=== PATIENT | female | born 1965 | race Caucasian/White ===

== ENCOUNTER 2016-10-02 09:04 | Day surgery (SDC) | payer BC ==
[2016-10-02 09:58] VITALS: BMI 23.0
[2016-10-02 10:55] VITALS: TEMP 97.5
[2016-10-02 11:47] VITALS: BP 108/64; PULSE 58
--- NOTE | 2016-10-03 13:29 | PATH ---
Surgical Pathology Report Patient Name: GILBERTO BROWN [facility]. Rec. #: [id number] /Age/Gender: 1965 (Age: 51) / F Account: [id number] Location: [facility]-ENDOSCOPY Taken: 10/02/2016 Received: 10/02/2016 Reported: 10/03/2016 Physicians: Urban Paredes D.O. Specimen(s) Received A: BX DUODENUM B: BX BODY Clinical History Nausea and vomiting Final Diagnosis A. DUODENUM, BIOPSY: DUODENAL MUCOSA WITH CHRONIC INFLAMMATION. NO HISTOLOGIC EVIDENCE OF GLUTEN SENSITIVE ENTEROPATHY (CELIAC DISEASE). B. STOMACH, BODY, BIOPSY: GASTRIC OXYNTIC MUCOSA WITH MILD TO MODERATE CHRONIC GASTRITIS. IMMUNOSTAIN FOR H. PYLORI IS NEGATIVE FOR ORGANISMS. Electronically Signed Michael Hui M.D. Gross Description A. Received in formalin, labeled "biopsy duodenum" are 3 johnson, irregular portions of soft tissue ranging from 0.2-0.4 cm in greatest dimension. The specimens are submitted in toto in one cassette. B. Received in formalin, labeled "biopsy body" is a johnson, irregular portion of soft tissue measuring 0.7 cm in greatest dimension. The specimen is submitted in toto in one cassette. /10/02/2016 saudi10/02/2016
== END 2016-10-02 11:57 | disposition home or self-care (01) ==
LOC: JASU-ENDO 09:04
PROVIDERS: ATTEND Internal Medicine Gastroenterology
PROC: 0DB68ZX Excision of Stomach, Via Natural or Artificial Opening Endoscopic, Diagnostic (ICD-10-PCS; 2016-10-02)
PROC: 0DB98ZX Excision of Duodenum, Via Natural or Artificial Opening Endoscopic, Diagnostic (ICD-10-PCS; principal; 2016-10-02 10:00)
DX: R11.2 Nausea with vomiting, unspecified (principal)
CPT/HCPCS: 84703; 88305-TC; 88342-TC

== ENCOUNTER → 2017-09-19 | Day surgery (SDC) | payer BC ==
[2017-09-11 15:56] VITALS: BMI 22.1
[~2017-09-19] MED LIST: BUPIVACAINE HCL/PF 0.25% (2.5MG/ML) 10 ML VIAL IJ ONE; BUPIVACAINE HCL/PF 2.5 MG/ML - 30 ML VIAL IJ ONE; DEXAMETHASONE SOD PHOSPHATE/PF 10 MG/ML SDV ONE; EPINEPHrine 1:1,000 1 MG/1 ML - 30ML VIAL (INJECTION) ONE; LACTATED RINGERS SOLUTION 1,000 ML IV SCH; METOPROLOL TARTRATE 5 MG/5 ML VIAL ONE; MIDAZOLAM HCL 2 MG/2 ML SINGLE DOSE VIAL ONE; ONDANSETRON 4 MG/2 ML VIAL IVPUSH PRN; PROMETHAZINE HCL 25 MG/1 ML VIAL IVPUSH PRN; PROPOFOL 20 ML ONE; ROPIVACAINE HCL 0.5% 30ML VIAL ONE; oxyCODONE HCL 5 MG TABLET PO PRN
--- NOTE | 2017-09-19 14:05 | OP ---
DATE OF OPERATION: 09/19/2017 PREOPERATIVE DIAGNOSIS: Right shoulder rotator cuff tear. 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 PROCEDURE: Right shoulder rotator cuff repair, manipulation under anesthesia, subacromial decompression, partial synovectomy. SURGEON: Rasta Butts MD EXERCISE MANAGER: Tony Mosqueda MD ANESTHESIA: Regional plus sedation. POSTOPERATIVE CONDITION: Stable. COMPLICATIONS: Loss of anchor fixation. IMPLANTS: Arthrex 6.5-mm metal Corkscrew anchors x2. INDICATION: This is a pleasant woman who has suffered a right shoulder fracture. She was having persistent pain and limited motion afterwards. An MRI demonstrated a rotator cuff tear. After allowing the fracture to heal, we discussed treatment options, including nonoperative versus operative care of the rotator cuff tear. We reviewed the risks, benefits and alternatives in detail. We reviewed surgical risks, including bleeding, infection, neurovascular injury, need for further surgery, postoperative pain and stiffness, re-tear of the rotator cuff or failure to heal initially. We discussed medical risks such as heart attack, stroke, DVT, PE and . I addressed all the patient's questions. She voiced understanding and elected to proceed. PROCEDURE: The patient was brought to the operating room after administration of a regional block in the preoperative holding area. She was placed into the beach-chair position while still awake, careful to pad all the bony prominences. The right upper extremity was then examined, demonstrating forward flexion to 140 degrees and external rotation to 40 degrees. Gentle manipulation at this time allowed full range of motion with some palpable breaks in the scar tissue. The patient was then prepped and draped in the usual sterile fashion. A preoperative dose of antibiotics was given and the usual timeout procedure was performed. The standard posterior viewing portal was established using an 11 blade. The arthroscope was passed into the glenohumeral joint. There was diffuse synovitis about the joint. The joint was examined, demonstrating no significant labral tears. There was slight superficial fraying of the cartilage surfaces but no significant osteoarthritis. Passing the arthroscope anteriorly, an anterior portal was established. Some of the synovitis was debrided, allowing visualization of the subscapularis which seemed to be intact. Passing the arthroscope more superiorly demonstrated that the biceps was intact. The biceps was drawn into the joint and no significant tendinosis was seen. The arthroscope was now passed back along the rotator cuff. Initially, visualization of the cuff appeared copacetic. There was some fraying at the anterior border. There was a dysplastic appearance to some of the more anterior tissue, but it was intact. The arthroscope was now passed back into the center of the joint. Some of the additional synovitis was debrided here. This was done using electrocautery as well as the mechanical shaver. The arthroscope was now passed into the subacromial space. Here, some bursitis was encountered. A lateral portal was established and some of the bursitis was debrided now. This allowed for visualization of the rotator cuff. At this time, a tear was identified at the anterior aspect of the rotator cuff on its bursal attachment. A probe was slid under and the probe actually slid all the way into the joint, indicating that the veil of tissue still attached at the footprint was minimal. Utilizing the shaver as well as a mechanical bur, the footprint was debrided. There was some abnormal contour to the footprint which was felt to be secondary to her previous injury with the fracture. This was debrided down to a flat surface. The cuff was now grasped using a rotator cuff grasper. The cuff was easily mobilized on to the footprint. The decision was now made to perform a repair with a knotless anchor. FiberTape and a FiberWire suture were loaded into the cuff in a ripstop configuration. A cannula was now placed into the lateral portal. The sutures were loaded on to an anchor. A punch was then used to create a trough for the anchor and the anchor was inserted. However, as the anchor was being inserted, the sutures themselves were seen to cut directly through the bone, leaving the anchor unable to gain any purchase. Upon noticing this, anchor insertion was halted and the anchor was removed. A 2nd location which was more lateral and more anterior was chosen and the same problem occurred with very early loss of fixation upon the tightening process. By this time, it was apparent that the bio-composite anchors were not satisfactory to gain purchase into her bone. The decision was made now to use a 6.5 metal anchor which has a much larger surface area and a much larger pitch which should allow for better fixation in osteoporotic bone. One anchor was inserted anteriorly. This was done over the lateral aspect of the greater tuberosity which had been cleared off using electrocautery. A 2nd anchor was inserted posteriorly. Initially it was felt that reasonable purchase was achieved. The previous sutures had now been removed. The sutures from the posterior anchor were now loaded into the rotator cuff. On tying the initial suture, before even a knot was placed, the anchor lost purchase and withdrew out of the bone. This anchor was then withdrawn from the joint. Electrocautery was now used to expose further down on to the proximal aspect of the lateral posterior humerus. Care was taken to stay along the bone in the subperiosteal plane. A 3rd 6.5 metal anchor was now inserted, gaining much better purchase here. These sutures were then passed in simple configuration. The rotator cuff grasper was now used to maintain the cuff in a reduced position while the posterior sutures were now tied. The cuff was then released and the cuff was now stable. The anterior anchor was now tied as well, also seen to be maintaining anchor position and cuff reduction. At this point, the entire repair was examined and both anchor placement and the reduction of the cuff were satisfactory. Given that it was still significantly tight in the subacromial space, decompression was now performed. Electrocautery was used to remove the soft tissue. A 4.0 bur was used to debride the bony surface down to a flat surface. The excess fluid was now withdrawn from the joint. The portals were sutured using 3-0 nylon. Sterile dressings were placed. The patient was placed in a sling. She was transferred to the recovery room in stable condition. RASTA BUTTS M.D. DAWNA/[id number]
[2017-09-19 15:47] VITALS: TEMP 97.9
[2017-09-19 15:53] VITALS: BP 100/55; PULSE 62
== END | disposition home or self-care (01) ==
LOC: FASU 08:24
PROVIDERS: ATTEND Orthopaedic Surgery Sports Medicine
PROC: 0RNJ4ZZ Release Right Shoulder Joint, Percutaneous Endoscopic Approach (ICD-10-PCS; 2017-09-19)
PROC: 0RBJ4ZZ Excision of Right Shoulder Joint, Percutaneous Endoscopic Approach (ICD-10-PCS; 2017-09-19)
PROC: 7W07X9Z Osteopathic Treatment of Upper Extremities using Other Method (ICD-10-PCS; 2017-09-19)
PROC: 0LB14ZZ Excision of Right Shoulder Tendon, Percutaneous Endoscopic Approach (ICD-10-PCS; principal; 2017-09-19 10:09)
DX: M75.121 Complete rotator cuff tear or rupture of right shoulder, not specified as traumatic (principal); M24.611 Ankylosis, right shoulder
CPT/HCPCS: 84703; 94760

== ENCOUNTER 2021-06-22 04:43 | Day surgery (SDC) | payer BC ==
[2021-06-21 12:24] VITALS: BMI 23.9
[2021-06-22 10:03] VITALS: TEMP 97
[2021-06-22 10:46] VITALS: BP 123/64; PULSE 47
== END 2021-06-22 11:40 | disposition home or self-care (01) ==
LOC: JASU-ENDO 04:43
PROVIDERS: ATTEND Internal Medicine Gastroenterology
PROC: 0DJD8ZZ Inspection of Lower Intestinal Tract, Via Natural or Artificial Opening Endoscopic (ICD-10-PCS; principal; 2021-06-22 09:15)
DX: Z12.11 Encounter for screening for malignant neoplasm of colon (principal)